=== PATIENT | female | born 1960 | race Caucasian/White ===

== ENCOUNTER → 2021-05-13 10:57 | Outpatient (CLI) | payer BC, SELFPAY ==
[2021-05-13 11:30] LABS: Prothrombin Time 27.2 seconds (10.1-12.5)
[2021-05-13 11:32] LABS: INR 2.46 (0.9-1.1)
== END ==
PROVIDERS: Visit Provider Physician Assistant
DX: R79.1 Abnormal coagulation profile (principal)
CPT/HCPCS: 85610

== ENCOUNTER → 2021-05-16 12:09 | Outpatient (CLI) | payer BC, SELFPAY ==
[2021-05-16 12:46] LABS: Prothrombin Time 30.4 seconds (10.1-12.5)
[2021-05-16 13:41] LABS: INR 2.78 (0.9-1.1)
== END ==
LOC: LAB 12:12 → LAB.DROPOF 12:13
PROVIDERS: Visit Provider Orthopaedic Surgery
DX: R79.1 Abnormal coagulation profile (principal)
CPT/HCPCS: 85610

== ENCOUNTER → 2021-05-18 11:28 | Outpatient (CLI) | payer BC, SELFPAY ==
[2021-05-18 11:58] LABS: INR 3.09 (0.9-1.1); Prothrombin Time 30.5 seconds (9.2-12.1)
== END ==
PROVIDERS: Visit Provider Orthopaedic Surgery
DX: R79.1 Abnormal coagulation profile (principal)
CPT/HCPCS: 85610

== ENCOUNTER → 2021-05-19 15:38 | Outpatient (CLI) | payer BC, SELFPAY ==
--- NOTE | 2021-05-19 | CA_ITS ---
APPROVED REPORT Left Lower Extremity Venous Study for DVT. Torpedo Specialist: CT Risk Factors Post OP Medications Coumadin Vein Imaging CFV (L): compressive, spontaneous, phasic, augmentation SFJ (L): compressive, spontaneous, phasic, augmentation FEM (L): compressive, spontaneous, phasic, augmentation POP (L): compressive, spontaneous, phasic, augmentation DFV (L): compressive, spontaneous, phasic, augmentation PTV (L): compressive, spontaneous, phasic, augmentation GSV (L): compressive, spontaneous, phasic, augmentation Peroneals (L):compressive, spontaneous, phasic, augmentation GAS (L): compressive, spontaneous, phasic, augmentation Findings LLE negative for DVT/SVT. Vessels compressible. Conclusion LLE negative for DVT/SVT. Vessels compressible. Electronically signed by : Lucho Smith MD 05/20/2021 16:00:47
== END ==
PROVIDERS: PCP Nurse Practitioner Family; Visit Provider Nurse Practitioner Family
DX: M79.662 Pain in left lower leg (principal); M79.89 Other specified soft tissue disorders
CPT/HCPCS: 93971

== ENCOUNTER → 2021-05-20 12:18 | Outpatient (CLI) | payer BC, SELFPAY ==
[2021-05-20 12:42] LABS: Prothrombin Time 28.1 seconds (10.1-12.5)
[2021-05-20 13:04] LABS: INR 2.55 (0.9-1.1)
== END ==
PROVIDERS: Visit Provider Orthopaedic Surgery
DX: Z51.81 Encounter for therapeutic drug level monitoring (principal); Z79.01 Long term (current) use of anticoagulants
CPT/HCPCS: 85610

== ENCOUNTER → 2021-05-23 15:06 | Outpatient (CLI) | payer BC, SELFPAY ==
[2021-05-23 15:24] LABS: Prothrombin Time 20.6 seconds (10.1-12.5)
[2021-05-23 15:31] LABS: INR 1.83 (0.9-1.1)
== END ==
PROVIDERS: Visit Provider Orthopaedic Surgery
DX: Z51.81 Encounter for therapeutic drug level monitoring (principal); Z79.01 Long term (current) use of anticoagulants
CPT/HCPCS: 85610

== ENCOUNTER → 2021-07-15 14:18 | Outpatient (CLI) | payer BC, SELFPAY ==
[2021-07-15 14:49] LABS: INR 2.01 (0.9-1.1); Prothrombin Time 21.6 seconds (10.1-12.5)
== END ==
PROVIDERS: Visit Provider Orthopaedic Surgery
DX: R79.1 Abnormal coagulation profile (principal)
CPT/HCPCS: 85610

== ENCOUNTER → 2021-07-20 11:02 | Outpatient (CLI) | payer BC, SELFPAY ==
[2021-07-20 11:19] LABS: INR 4.33 (0.9-1.1); Prothrombin Time 43.9 seconds (10.1-12.5)
== END ==
PROVIDERS: Visit Provider Orthopaedic Surgery
DX: R79.1 Abnormal coagulation profile (principal)
CPT/HCPCS: 85610

== ENCOUNTER → 2021-07-25 11:05 | Outpatient (CLI) | payer BC, SELFPAY ==
[2021-07-25 11:28] LABS: INR 1.52 (0.9-1.1); Prothrombin Time 16.7 seconds (10.1-12.5)
== END ==
PROVIDERS: Visit Provider Orthopaedic Surgery
DX: R79.1 Abnormal coagulation profile (principal)
CPT/HCPCS: 36415; 85610

== ENCOUNTER → 2022-12-26 14:40 | Outpatient (POV) | payer BC, SELFPAY | PROVIDERS: Visit Provider Dermatology | DX: Z00.00 Encounter for general adult medical examination without abnormal findings (principal) ==

== ENCOUNTER → 2023-02-27 14:32 | Outpatient (POV) | payer BC, SELFPAY | PROVIDERS: Visit Provider Dermatology | DX: Z00.00 Encounter for general adult medical examination without abnormal findings (principal) ==

== ENCOUNTER 2024-07-07 12:38 | Day surgery (SDC) | payer BC, SELFPAY ==
[2024-07-01 14:25] VITALS: BMI 41.6
[2024-07-07 12:58] VITALS: BP 138/71; RESP 18; TEMP 36.6; O2SAT 97
--- NOTE | 2024-07-07 13:34 | P.PNANES_ITS ---
[facility] Disclaimer: The information contained in this section may have been updated after the patient was seen, as this information can be updated by other users. Medical History History of colon polyps History of cataract History of diabetes mellitus History of hyperlipidemia History of atrial fibrillation Surgical History History of colonoscopy History of dilation and curettage History of laparoscopic cholecystectomy History of bilateral knee arthroplasty Family History Other No significant family history Social History Smoking Status: Never smoker alcohol intake: never substance use type: denies use current occupational status: retired Travel in the last 8 weeks: Inside the [facility] Anesthesia Checklist Patient Identification Patient Identification: Arm Band Structural Data Admitted From: Home Planned Operative Procedure/s: Colonoscopy Consent for Planned Operative Procedure(s) Verified: Yes Verified Documents: Surgical Consent and History and Physical NPO Status Verified Time NPO: 00:00 Additional verifications Anesthesia Reactions: No Airway Assessment Mallampati Score:: Class II C-Spine Mobility Assessed: Yes TMJ Mobility Assessed: Yes Dentition: Good Dentition Neurological Assessment Level of Consciousness: Awake, Alert and Appropriate Anesthesia Plan Anesthesia Risk discussed: Yes Anesthesia Plan: Verified ASA Class: III Anesthesia Type: MAC
--- NOTE | 2024-07-07 14:37 | P.HP_ITS ---
History of Present Illness *Admission Date: 07/07/24 *Reason for visit:: Screening *History of present illness: Mrs. Vargas is a 63-year-old female who is here for follow-up screening/surveillance colonoscopy. Her last colonoscopy was with me in [place] in 2013. At that time she had 3 polyps removed. Her maternal grandmother had colon cancer at the age of 70. [facility] Disclaimer: The information contained in this section may have been updated after the patient was seen, as this information can be updated by other users. Medical History (Updated 07/07/24 @ 14:46 by Adelso Escobedo MD) History of colon polyps History of cataract History of diabetes mellitus History of hyperlipidemia History of atrial fibrillation Surgical History History of colonoscopy History of dilation and curettage History of laparoscopic cholecystectomy History of bilateral knee arthroplasty Family History Other No significant family history Social History (Updated 07/07/24 @ 13:35 by Rohan Johnson CRNA) Smoking Status: Never smoker alcohol intake: never substance use type: denies use current occupational status: retired Travel in the last 8 weeks: Inside the [place] Review of Systems Review of Systems Review of systems (narrative): Negative *Cardiovascular Comments: Negative *Gastrointestinal Comments: Negative *Genitourinary Comments: Negative *Musculoskeletal Comments: Negative *Neurologic Comments: Negative Meds Home Medications and Allergies Home Medications ?Medication ?Instructions ?Recorded ?Confirmed ?Type atorvastatin 20 mg tablet 20 mg PO DAILY 07/01/24 07/07/24 History escitalopram oxalate 10 mg tablet 10 mg PO DAILY 07/01/24 07/07/24 History lisinopril 5 mg tablet 5 mg PO DAILY 07/01/24 07/07/24 History metformin 500 mg tablet,extended 500 mg PO DAILY 07/01/24 07/07/24 History release 24 hr metoprolol succinate 25 mg 25 mg PO ONCE PRN a fib 07/01/24 07/07/24 History tablet,extended release 24 hr propafenone 225 mg tablet 225 mg PO DAILY 07/01/24 07/07/24 History rivaroxaban 20 mg tablet (Xarelto) 20 mg PO DAILY 07/01/24 07/07/24 History New Prescriptions to Start Prescriptions: Allergies Allergy/AdvReac Type Severity Reaction Status Date / Time No Known Allergies Allergy Verified 07/07/24 12:56 Exam Data for Last 24 hours Vital signs and Labs for Last 24 Hours: Temp Resp BP Pulse Ox O2 Del Method 97.8 F 18 138/71 97 Room Air 07/07/24 12:58 07/07/24 12:58 07/07/24 12:58 07/07/24 12:58 07/07/24 12:58 *Routine HEENT Exam Head: Present normocephalic Eye: Present EOMI and PERRL ENT: Present mucous membranes moist *Routine Neck Exam Neck: Present supple *Routine Respiratory Exam Respiratory: Present CTA bilaterally *Routine Cardiovascular Exam Cardiovascular: Present RRR *Routine Abdominal Exam Abdominal: Present soft and normoactive bowel sounds; Absent tenderness *Routine Rectal Exam Rectal:: deferred *Routine Genitalia Exam Genitalia:: deferred *Routine Extremities Exam Extremities: Absent cyanosis, clubbing or edema *Routine Skin Exam Skin: Present warm; Absent rash *Routine Neurological Exam Neurological: Present alert and oriented X3 Assessment and Plan *Assessment and plan (1) Screening for colon cancer: Status: Acute Category: Medical Code(s): Z12.11 - Encounter for screening for malignant neoplasm of colon (2) History of colon polyps: Status: Acute Category: Medical Code(s): Z86.010 - Personal history of colonic polyps Plan Proceed with screening colonoscopy
[2024-07-07 14:44] VITALS: O2SAT 97
--- NOTE | 2024-07-07 14:46 | HMH.PROCNOTE ---
[facility] Procedure Note Date: 07/07/24 Time: 14:47 Procedure Note:: Colonoscopy Procedure Report: Colonoscopy with cold biopsies Endoscopist: Adelso Escobedo II, MD Referring physician: Jamey Aragon M.D. Date of Procedure: July 07, 2024 Equipment: Olympus 190 variable stiffness pediatric colonoscope Sedation: MAC sedation Indication: Mrs. Vargas is a 63-year-old female who is here for follow-up screening/surveillance colonoscopy. Her last colonoscopy in 2013 (in [place] with ca) was normal. She does state that she might of had 2 or 3 benign polyps removed. The patient does state that her maternal grandmother had colon cancer at the age of 70. The patient does have some intermittent diarrhea longstanding but attributes this to Ozempic. She reports no abdominal pain, weight loss or rectal bleeding. Procedure: Prior to the procedure, a history and physical exam was performed, and patient's medications and allergies were reviewed. The risks, benefits and alternatives of the sedation and procedure were discussed with the patient. All questions were answered and informed consent was obtained. The patient was brought to the procedure room. Patient identification and proposed procedure were verified by the physician and the nurse. The patient was placed in a left lateral decubitus position and the scope was passed under direct vision. Throughout the procedure, the patient's blood pressure, pulse, and oxygen saturations were monitored continuously. The colonoscopy was accomplished without difficulty. The patient tolerated the procedure well. Findings: On digital rectal examination there was normal rectal tone. There were no external hemorrhoids. The colonoscope was introduced through the anal canal to the rectum and advanced to the cecum. The ileocecal valve and appendiceal orifice were identified. The scope was advanced a short distance into the ileum which appeared grossly normal. The scope was then withdrawn into the colon. The cecum, ascending and transverse colon and mucosa were grossly normal. Random biopsies were obtained from the colon to rule out microscopic colitis. There were scattered diverticuli throughout the descending and sigmoid colon (LEFT colon). The rectum itself was normal. Upon retroflexion within the rectum there were grade 1-2 internal hemorrhoids. The preparation was excellent throughout with [place] Preparation Score of 9. The cecal time was 10 minutes. Impression: 1. Left-sided diverticulosis 2. Grade 1-2 internal hemorrhoids Plan: Those persons that constitute having a stronger family history of colorectal cancer are those with a first-degree relative (parent, sibling, or child) not second degree relatives such as grandmother diagnosed with colon cancer when they were younger than 50, or if more than one first-degree relative is affected. It is in these persons, that we recommend surveillance colonoscopy every 5 years. Persons that have a first-degree family member greater than 60 years of age at the time of their diagnosis are not deemed to be at greater risk because most colon cancers are sporadic (environmental and other factors) and are not hereditary. In this regard, the patient will not require surveillance colonoscopy again for 10 years. I will follow-up the biopsies to rule out microscopic colitis. I do attribute her diarrhea to the Ozempic. I do feel that she would benefit from bulking FiberCon [id number] 2 tablets p.o. every morning.
[2024-07-07 15:05] VITALS: BP 124/67; PULSE 52; RESP 16; TEMP 36.8; O2SAT 94
[2024-07-07 15:15] VITALS: BP 128/85; PULSE 50; RESP 18; O2SAT 96
[2024-07-07 15:25] VITALS: BP 130/69; PULSE 50; RESP 16; O2SAT 96
[2024-07-07 15:30] VITALS: BP 133/82; PULSE 48; RESP 16; O2SAT 98
[2024-07-08 09:33] LABS: POC Glucose,Bedside 80 (70-110)
== END 2024-07-07 15:37 | disposition home or self-care (01) ==
PROVIDERS: PCP Internal Medicine Adolescent Medicine; Visit Provider Internal Medicine Gastroenterology
PROC: (CPT 45380; principal; 2024-07-07 14:00)
DX: Z12.11 Encounter for screening for malignant neoplasm of colon (principal); Z86.010 Personal history of colon polyps; E11.9 Type 2 diabetes mellitus without complications; Z79.84 Long term (current) use of oral hypoglycemic drugs
CPT/HCPCS: 45380; 82962; 99221

== ENCOUNTER 2025-01-29 01:30 | Emergency (ER) | payer BC, SELFPAY ==
[2025-01-29 01:31] VITALS: BP 169/77; PULSE 79; RESP 16; O2SAT 98; BMI 41.5
[2025-01-29 01:33] VITALS: BP 142/88; PULSE 79; RESP 16; TEMP 36.6; O2SAT 98
--- NOTE | 2025-01-29 01:35 | CT_ITS ---
PROCEDURE INFORMATION: Exam: CT Maxillofacial Without Contrast Exam date and time: 01/29/2025 1:56 AM Age: 64 years old Clinical indication: Injury or trauma; Additional info: Fall L eyebrow hematoma TECHNIQUE: Imaging protocol: Computed tomography of the face without contrast. Radiation optimization: All CT scans at this facility use at least one of these dose optimization techniques: automated exposure control; mA and/or kV adjustment per patient size (includes targeted exams where dose is matched to clinical indication); or iterative reconstruction. COMPARISON: CT HEAD/BRAIN WO CON 01/29/2025 1:53 AM FINDINGS: Paranasal sinuses: No air-fluid levels. Orbital cavities: The orbits are normal. The globes are unremarkable. Bones: Hyperostosis frontalis interna is noted. Soft tissues: A large left forehead hematoma is present. IMPRESSION: No acute fracture
--- NOTE | 2025-01-29 01:35 | CT_ITS ---
PROCEDURE INFORMATION: Exam: CT Head Without Contrast Exam date and time: 01/29/2025 1:53 AM Age: 64 years old Clinical indication: Injury or trauma; Additional info: Fall on thinners L eyebrow hematoma TECHNIQUE: Imaging protocol: Computed tomography of the head without contrast. Radiation optimization: All CT scans at this facility use at least one of these dose optimization techniques: automated exposure control; mA and/or kV adjustment per patient size (includes targeted exams where dose is matched to clinical indication); or iterative reconstruction. COMPARISON: CT HEAD/BRAIN WO CON 01/29/2025 1:53 AM FINDINGS: Brain: No acute intracranial hemorrhage, cerebral edema, or midline shift. Cerebral ventricles: No hydrocephalus. Paranasal sinuses: There is no acute sinusitis. Mastoid air cells: Visualized mastoid air cells are well aerated. Orbital cavities: The visualized orbits appear unremarkable. Bones: Hyperostosis frontalis interna is noted. Soft tissues: A large left forehead hematoma is present. IMPRESSION: No acute intracranial abnormality.
--- NOTE | 2025-01-29 01:35 | XR_ITS ---
PROCEDURE INFORMATION: Exam: XR Left Knee Exam date and time: 01/29/2025 1:46 AM Age: 64 years old Clinical indication: Injury or trauma; Fall; Additional info: Fall L knee bruising TECHNIQUE: Imaging protocol: Radiologic exam of the left knee. Views: 3 views. Total images: 3 COMPARISON: No relevant prior studies available. FINDINGS: Bones/joints: Osteopenia. Status post total knee arthroplasty. No hardware loosening. No joint effusion. No acute fracture or joint dislocation. No concerning bone lesions. Soft tissues: Unremarkable soft tissues. IMPRESSION: 1. No acute osseous abnormality or joint effusion. 2. Satisfactory total knee arthroplasty.
--- NOTE | 2025-01-29 01:35 | CT_ITS ---
PROCEDURE INFORMATION: Exam: CT Cervical Spine Without Contrast Exam date and time: 01/29/2025 1:58 AM Age: 64 years old Clinical indication: Injury or trauma; Additional info: Fall thinners TECHNIQUE: Imaging protocol: Computed tomography of the cervical spine without contrast. Radiation optimization: All CT scans at this facility use at least one of these dose optimization techniques: automated exposure control; mA and/or kV adjustment per patient size (includes targeted exams where dose is matched to clinical indication); or iterative reconstruction. COMPARISON: CT FACIAL BONES WO CON 01/29/2025 1:56 AM FINDINGS: Bones: Bone mineralization is decreased, suggestive of osteopenia. No acute cervical spine fracture is identified. Alignment is anatomic. Severe degenerative changes of the cervical spine are present. There is at least moderate spinal canal stenosis at C4-C5 and C5-C6 due to posterior disc osteophyte complexes. Multilevel neural foraminal narrowing from uncinate spurring and facet arthropathy is noted. Large bridging osteophytes are present, consistent with diffuse idiopathic skeletal hyperostosis (DISH). Lungs: The lung apices are clear. Soft tissues: Unremarkable. IMPRESSION: 1. No acute cervical spine fracture. 2. Chronic findings as discussed above.
--- NOTE | 2025-01-29 01:35 | XR_ITS ---
PROCEDURE INFORMATION: Exam: XR Left Hand Exam date and time: 01/29/2025 1:46 AM Age: 64 years old Clinical indication: Injury or trauma; Fall; Additional info: Fall 5th metacarpal bruising TECHNIQUE: Imaging protocol: Radiologic exam of the left hand. Views: 1 or 2 views. Total images: 2 COMPARISON: No relevant prior studies available. FINDINGS: Bones/joints: Osteopenia. No acute fracture or joint dislocation. Severe degenerative change 1st carpometacarpal joint. Mild degenerative change 1st metacarpophalangeal joint. Joint spaces are otherwise appropriate for age. No concerning bone lesions. Ulnar negative variance. Mild degenerative narrowing radiocarpal joint. Soft tissues: Unremarkable soft tissues. IMPRESSION: 1. No acute osseous abnormality. 2. Chronic findings.
--- NOTE | 2025-01-29 01:36 | ED_ITS ---
Discharge Plan Disposition Patient Disposition: Home, Self-Care Condition: Good Prescriptions Prescriptions: No Action atorvastatin 20 mg tablet 20 mg PO DAILY propafenone 225 mg tablet 225 mg PO DAILY lisinopril 5 mg tablet 5 mg PO DAILY metoprolol succinate 25 mg tablet extended release 24 hr 25 mg PO ONCE PRN (Reason: a fib) metformin 500 mg tablet extended release 24 hr 500 mg PO DAILY escitalopram oxalate 10 mg tablet 10 mg PO DAILY Xarelto 20 mg tablet 20 mg PO DAILY Referrals Follow up/Referrals: Jamey Aragon MD [Primary Care Provider] - See instructions Activity Restrictions/Add. Instructions Additional Instructions/Restrictions: Were evaluated in the ER and are appropriate for discharge at this time. Continue home medications as prescribed. If you have headache, take Tylenol. Do not exceed the recommended dose on the bottle. You can apply ice wrapped in a towel to the area of bruising for up to 20 minutes at a time. Starting in 24 hours you can also very gently massage the area to help with hematoma reabsorption. Make an appointment with your primary care doctor for reevaluation in 2 to 3 days. Return to the ER with any new, worsening, or otherwise concerning symptoms as discussed. Clinical Impressions Clinical Impression: Fall, Traumatic hematoma of left eyebrow, Cervical osteophyte Print Language Print Language: Greek Discharge ED Provider: Felicia Kennedy Adult HPI General Stated complaint: fall, head injury Time Seen by Provider: 01/29/25 01:30 History of Present Illness HPI narrative: 64-year-old female on Xarelto for atrial fibrillation presents to the ER as a trauma alert after trip and fall striking her forehead. Patient reports she was in her kitchen when she tripped on the mat in front of her fridge. She struck her forehead when she fell. No loss of consciousness. Patient reports she also bumped her left hand and her left knee but those are not nearly as painful as the swelling on her left eyebrow. She is independently ambulatory into the ER. She has no complaints besides pain over the left eyebrow. No vision changes, numbness, tingling, weakness, chest pain, abdominal pain, or any other associated symptoms. Related Data Home Medications ?Medication ?Instructions ?Recorded ?Confirmed atorvastatin 20 mg tablet 20 mg PO DAILY 07/01/24 07/07/24 escitalopram oxalate 10 mg tablet 10 mg PO DAILY 07/01/24 07/07/24 lisinopril 5 mg tablet 5 mg PO DAILY 07/01/24 07/07/24 metformin 500 mg tablet,extended 500 mg PO DAILY 07/01/24 07/07/24 release 24 hr metoprolol succinate 25 mg 25 mg PO ONCE PRN a fib 07/01/24 07/07/24 tablet,extended release 24 hr propafenone 225 mg tablet 225 mg PO DAILY 07/01/24 07/07/24 rivaroxaban 20 mg tablet (Xarelto) 20 mg PO DAILY 07/01/24 07/07/24 Allergies Allergy/AdvReac Type Severity Reaction Status Date / Time No Known Allergies Allergy Verified 07/07/24 12:56 [facility] Disclaimer: The information contained in this section may have been updated after the patient was seen, as this information can be updated by other users. Medical History (Updated 01/29/25 @ 02:47 by Felicia Kennedy MD) History of colon polyps History of cataract History of diabetes mellitus History of hyperlipidemia History of atrial fibrillation Surgical History History of colonoscopy History of dilation and curettage History of laparoscopic cholecystectomy History of bilateral knee arthroplasty Family History Other No significant family history Social History (Updated 07/07/24 @ 13:35 by Rohan Johnson CRNA) Smoking Status: Never smoker alcohol intake: never substance use type: denies use current occupational status: retired Travel in the last 8 weeks: [place] the [place] ROS Obtained: Yes Systems reviewed as appropriate & no additional complaints except as documented Per HPI Physical Exam General General appearance: alert and in no apparent distress Head Head exam: normocephalic and other (Hematoma over left eyebrow/left forehead) Eye Eye exam: Present PERRL, EOMI and other (No subscleral hematoma or evidence of ocular injury); Absent conjunctival redness or jaundice ENT ENT exam: Present mucous membranes moist Neck Neck exam: Present normal inspection, full ROM and other (C-collar applied upon arrival to the ER); Absent tenderness Chest Chest inspection: Present symmetric chest wall rise; Absent tenderness Respiratory Respiratory exam: Absent respiratory distress or stridor Cardiovascular Cardiovascular exam: Present regular rate and normal rhythm Abdominal Exam Abdominal exam: Present soft; Absent distention or tenderness Extremities Exam Extremities exam: Present full ROM Neurological Exam Neurological exam: Present alert and oriented X3; Absent motor sensory deficit Psychiatric Psychiatric exam: Present normal affect and normal mood Skin Skin exam: Present warm and dry Medical Decision Making Medical Records Medical records reviewed: Yes I reviewed the patient's medical records. Screening: Per USPSTF and CDC recommendations, given the prevalence of disease in our region, it is our hospital?s policy to screen for HIV and viral Hepatitis for all patients aged 18 and over and those with ongoing risk factors. MR Comment: Colonoscopy from June 2024 reviewed by me demonstrates patient had left-sided diverticulosis as well as grade 1-2 internal hemorrhoids. Zane Inquiry Pt receiving controlled substance: No Vital Signs: 01/29/25 01:33 01/29/25 02:07 Temperature 98 F Temperature Source Oral Pulse Rate 66 Pulse Rate [Right] 79 Respiratory Rate 16 Blood Pressure 141/75 H Blood Pressure [Right Arm] 142/88 H Blood Pressure Mean [Right Arm] 106 Blood Pressure Source [Right Arm] Manual Cuff/ Auscultation Blood Pressure Position [Right Arm] Sitting 02 Sat by Pulse Oximetry 98 98 Oxygen Delivery Method Room Air Lab Data Lab Results 01/29/25 01:39: POC Glucose 141 H Orders (Tests/Meds): ED MEDICATIONS Discontinued Medications Generic Name Dose Route Start Last Admin Trade Name Freq PRN Reason Stop Dose Admin Acetaminophen 1,000 mg 01/29/25 02:32 01/29/25 02:35 Acetaminophen 500mg Tab PO 01/29/25 02:33 1,000 mg ONCE ONE Administration ORDERS Category Date Time Status CT cervical spine wo con Stat Cat Scan 01/29/25 01:[address] facial bones wo con Stat Cat Scan 01/29/25 01:[address] head/brain wo con Stat Cat Scan 01/29/25 01:35 Completed Hand XR left 2 views [XR hand LT 2V] Stat Exams 01/29/25 01:35 Completed Knee XR left 3 views [XR knee LT 3V] Stat Exams 01/29/25 01:35 Completed POCUS Point of Care (ER Only) Stat Exams 01/29/25 01:35 Completed POC Glucose,Bedside Routine Lab 01/29/25 01:39 Completed Medical Decision Narrative: In summary, 64-year-old female with atrial fibrillation on Xarelto presents to the ER with swelling over the left eyebrow after a trip and fall in her kitchen. No loss of consciousness. Patient was a trauma alert because she is a fall on blood thinners. I was present at bedside upon patient's arrival. Airway intact, bilateral breath sounds present, 2+ radial pulses, GCS 15, no neurologic deficit, only obvious external injuries are hematoma over the left eyebrow with no evidence of ocular injury, mild bruising over the left fifth metacarpal, mild bruising over the left knee. Patient is hemodynamically stable, well-appearing, independently ambulatory into the ER. After my initial assessment I immediately downgraded the trauma alert. We will continue to manage this patient at our facility. My differential diagnosis at this time includes intracranial bleed, facial fracture, C-spine injury, fracture or dislocation of the hand, knee, possible hardware injury of previously replaced left knee. Healing at most morbid conditions drove my assessment. CTs and x-ray imaging have been ordered. EFAST personally performed and interpreted as negative. See procedure note for details. X-rays of the hand and knee were personally interpreted and do not demonstrate acute osseous injury. See radiology read for final interpretation. CT imaging personally interpreted does not demonstrate acute intracranial injury or skull fracture, no facial fracture, no C-spine injury though there are degenerative changes and osteophytes. There is hematoma over the left eyebrow and frontal area which correlates clinically. See radiology reads for final interpretation. C-collar personally cleared by me. Patient has no midline pain or tenderness. No neurologic deficits. She has mild headache and received Tylenol. She is not complaining of any vision changes and has good acuity. She is appropriate for discharge at this time. She was given instructions on symptomatic monitoring and management including hematoma management. No changes in medications. Patient was given instructions on symptomatic management, follow up instructions, and return precautions for the emergency department. Patient indicated understanding and was discharged in stable condition. Critical Care Critical Care Time Critical Care Time: No
--- OUTSIDE RECORDS SUMMARY | 2025-01-29 01:40 | XMS_ITS | Clinical Summary ---
Author Organization [facility] , [facility] Address [address] [place] [address] Phone Care Team Providers Care Lane Attendant Name Role Phone NELLY DINH, SMITA Unavailable [phone] Elle DINH, Vince Pate Unavailable [phone] Reason for Referral Date Encounter Description Provider Reason for Referral 09/15/21 Post Op Dat Tilley PA-C Refer ral To Physician - see pcp for bp Reason for Visit and Chief Complaint The Chief Complaint is: hallie knee pain Problems Includes: Problems addressed during this encounter and other active Problems All Visits Onset Date Resolved Date Provider Condition S tatus Joint Pain in Both Knees 02/11/2019 Vince Almeida MD Active Last Documented On 9 3:09PM ; [facility], [facility] Plan of Treatment Patient overall doing very well. She is to continue physical therapy home exercise program. May gradually progress her activity as tolerated. Follow-up in the office in one year with repeat x-rays Patient appears to have a bit of a rash over the anterior aspect of her left knee directly over the incision. Left knee incision is well-healed recommend topical cortisone cream she is seeing dermatology next week - Last Documented On 09/15/2021 1:27PM ; [facility], [facility] Instructions to patient Instructions for patient to see pcp for low bp and wt Last Documented On 1 1:06PM ; [facility], [facility] Lose weight Last Documented On 1 1:06PM ; [facility], [facility] Assessments Includes: Assessments from this encounter Findings 8 weeks s/p Right TKA - Last Documented On 09/15/2021 1:27PM ; [facility], [facility] Instructions Includes: Instructions from this encounter Instructions to patient Instructions for patient to see pcp for low bp and wt Last Documented On 1 1:06PM ; [facility], [facility] Lose weight Last Documented On 1 1:06PM ; [facility], [facility] Medical Equipment - Implanted Devices Includes: Current Devices No Medical Equipment Recorded Medications Includes: Medications discussed during this encounter and other current Medications Current Medications (continue as prescribed) metFORMIN HCl ER 500 MG Oral Tablet Extended Release 24 Hour 06/22/2022 Provider: Catrachita parekh APRN Diagnosis: Last Documented On 2 2:28PM By Estrella Phillips ; [facility], [facility] Propafenone HCl 225 MG Oral Tablet 06/22/2022 Provid er: Diagnosis: Last Documented On 2 2:28PM By Estrella Phillips ; [facility], [facility] Past Medications on file Atorvastatin Calcium 20 MG O ral Tablet 09/18/2022 - 12/17/2022 Provider: SMITA Fraga Diagnosis: Last Documented On 2 1:32PM By Estrella Phillips ; [facility], [facility] Lisinopril 5 MG Oral Tablet 09/18/2022 - 12/17/2022 Pr ovider: SMITA VILLEGAS MD Diagnosis: Last Documented On 2 1:32PM By Estrella Phillips ; [facility], [facility] Escitalopram Oxalate 10 MG Oral Tablet 09/18/2022 - Provider: Diagnosis: Last Documented On 2 1:34PM By Estrella Phillips ; [facility], [facility] Xarelto 20 MG Oral Tablet 09/18/2022 - 12/17/2022 Prov ider: Diagnosis: Last Documented On 2 1:34PM By Estrella Phillips ; [facility], [facility] Propafenone HCl 150 MG Oral Tablet 09/18/2022 - 12/17/2022 Provider: LESTER STINSON MD Diagnosis: Last Documented On 2 1:34PM By Estrella Phillips ; [facility], [facility] Acetaminophen 500 MG Oral Tablet 07/11/2021 - 08/10/2021 Provider: Vince Almeida MD Diagnosis: 2 three times a day DNF UNTIL SX 07/13/21 Last Documented On 1 12:17PM By Magdiel Almeida ; [facility], [facility] Cefadroxil 500 MG Oral Capsule 07/11/2021 - 07/14/2021 Provider: Vince beltran MD Diagnosis: twice a day DNF UNTIL SX 07/13/21 Last Documented On 1 12:18PM By Magdiel Almeida ; [facility] Ultram 50 MG Oral Tablet 07/11/2021 - 07/16/2021 Provider: Vince beltran MD Diagnosis: 1-2 po q6h prn pain DNF UNTIL SX 07/13/21 Last Documented On 12:23PM By Magdiel Almeida ; [facility], [facility] oxyCODONE HCl 5 MG Oral Tablet 07/11/2021 - 07/16/2021 Provider: Vince beltran MD Diagnosis: 1-2 po q 4-6h DNF UNTIL SX 07/13/21 Last Documented On 1 12:23PM By Magdiel Almeida ; [facility], [facility] Ondansetron HCl 4 MG Oral Tablet 07/11/2021 - 07/16/2021 Provider: Vince Almeida MD Diagnosis: 9oad2-8d DNF UNTIL SX 07/13/21 Last Documented On 1 12:20PM By Magdiel Almeida ; [facility], [facility] Neurontin 300 MG Oral Capsule 07/11/2021 - 10/09/2021 Provider: Vince beltran MD Diagnosis: 1 every bedtime DNF UNTIL SX 07/13/21 Last Documented On 1 12:23PM By Magdiel Almeida ; [facility] Meloxicam 15 MG Oral Tablet 07/11/2021 - 07/25/2021 Provider: Vince beltran MD Diagnosis: once a day DNF UNTIL SX 07/13/21 Last Documented On 1 12:19PM By Magdiel Almeida ; [facility] Colace 100 MG Oral Capsule 07/11/2021 - 10/09/2021 Provider: Vince beltran MD Diagnosis: 1-2 tabs daily DNF UNTIL SX 07/13/21 Last Documented On 12:18PM By Magdiel Almeida ; [facility] Ultram 50 MG Oral Tablet 05/10/2021 - 05/15/2021 Provider: Vince beltran MD Diagnosis: 1-2 po q6h prn pain DNF UNTIL SX 05/11/21 Last Documented On 9:08AM By Magdiel Almeida ; [facility] oxyCODONE HCl 5 MG Oral Tablet 05/10/2021 - 05/15/2021 Provider: Vince beltran MD Diagnosis: 1-2 po q 4-6h DNF UNTIL SX 05/11/21 Last Documented On 1 9:08AM By Magdiel Almeida ; [facility] Ondansetron HCl 4 MG Oral Tablet 05/10/2021 - 05/15/2021 Provider: Vince Almeida MD Diagnosis: 1soc5-4e DNF UNTIL SX 05/11/21 Last Documented On 1 9:02AM By Magdiel Almeida ; [facility] Meloxicam 15 MG Oral Tablet 05/10/2021 - 05/24/2021 Provider: Vince beltran MD Diagnosis: once a day DNF UNTIL SX 05/11/21 Last Documented On 1 9:01AM By Magdiel Almeida ; [facility] Neurontin 300 MG Oral Capsule 05/10/2021 - 08/08/2021 Provider: Vince beltran MD Diagnosis: 1 every bedtime DNF UNTIL SX 05/11/21 Last Documented On 9:08AM By Magdiel Almeida ; [facility] Colace 100 MG Oral Capsule 05/10/2021 - 08/08/2021 Provider: Vince beltran MD Diagnosis: 1-2 tabs daily DNF UNTIL SX 05/11/21 Last Documented On 1 9:00AM By Magdiel Almeida ; [facility] Cefadroxil 500 MG Oral Capsule 05/10/2021 - 05/13/2021 Provider: Vince beltran MD Diagnosis: twice a day DNF UNTIL SX 05/11/21 Last Documented On 1 8:59AM By Magdiel Almeida ; [facility] Acetaminophen 500 MG Oral Tablet 05/10/2021 - 06/09/2021 Provider: Vince Almeida MD Diagnosis: 2 three times a day DNF UNTIL SX 05/11/21 Last Documented On 1 8:59AM By Magdiel Almeida ; [facility] Medications Administered Includes: Administered Medications from this encounter No Administered Medications Recorded Vital Signs Includes: Vital Signs from this encounter Vital Name 09/15/2021 01:06P Blood Pressure Sitting (mmHg) 168/76 Pulse Rate-Sitting (bpm) 65 Height (in) 66 Weight (lb) 315 Body Mass Index (kg/m2) 50.8 Body Surface Area (m2) 2.4 Note: ml Last Documented: On 09/15/2021 1:10PM ; [facility] Results Includes: Results discussed during this encounter No Results Recorded For Specified Dates History of Present Illness Includes: History of Present Illness from this encounter VIOLETTA Vargas is a 60 year old female. - Allergy list reviewed - Problem list reviewed - Medication reconciliation performed - Medication list reviewed Social History Description Last Updated Exercising regularly 09/18/2022 Last Documented On 1 1:06PM ; [facility] Non-smoker 05/26/2021 Last Documented On 1 1:06PM ; [facility] Not a current smoker. 05/26/2021 Last Documented On 1 1:06PM ; [facility] Caffeine use 02/11/2019 Last Documented On 1 1:06PM ; [facility] No recent change in diet 02/11/2019 Last Documented On 1 1:06PM ; [facility] Not a current smoker 02/11/2019 Last Documented On 1 1:06PM ; [facility], [facility] Not using alcohol 02/11/2019 Last Documented On 1 1:06PM ; [facility], [facility] Not using drugs 02/11/2019 Last Documented On 1 1:06PM ; [facility] No tobacco use 02/11/2019 Last Documented On 1 1:06PM ; [facility], [facility] Smoking status : Never smoker 02/11/2019 Last Documented On 1 1:06PM ; [facility], [facility] Procedures and Surgical History Includes: Procedures from this encounter Procedures Code Diagnosis Performing Provider Service L ocation Service Date use of tobacco assessment performed 1000F Last Documented On 1 1:06PM ; [facility], [facility] referral to physician see pcp for bp Last Documented On 1 1:11PM ; [facility], [facility] Clinical summary provided to patient Last Documented On 1 1:06PM ; [facility] an X-ray was performed 79009 Last Documented On 1 1:06PM ; [facility], [facility] History of Blood Tests Last Documented On 1 1:06PM ; [facility] Medical History Includes: Medical History addressed during this encounter Description Last Updated Recent immunization for flu 2019 022 Last Documented On 1 1:06PM ; [facility] Arthritis 05/26/2021 Last Documented On 1 1:06PM ; [facility], [facility] Heartburn / Acid Reflux 05/26/2021 Last Documented On 1 1:06PM ; [facility], [facility] History of Gallbladder 05/26/2021 Last Documented On 1 1:06PM ; [facility] Hypertension 05/26/2021 Last Documented On 1 1:06PM ; [facility], [facility] Irregular Heartbeat 05/26/2021 Last Documented On 1 1:06PM ; [facility], [facility] No recent immunization for pneumococcal pneumonia 05/26/2021 Last Documented On 1 1:06PM ; [facility] Past Surgical History: cataracts 021 Last Documented On 1 1:06PM ; [facility] Sleep Apnea 05/26/2021 Last Documented On 1 1:06PM ; [facility] Total knee arthroplasty 05/26/2021 Last Documented On 1 1:06PM ; [facility] Use of CPAP 05/26/2021 Last Documented On 1 1:06PM ; [facility] heartburn/acid reflux 02/11/2019 Last Documented On 1 1:06PM ; [facility] A previous fracture 02/11/2019 Last Documented On 1 1:06PM ; [facility] Arthritic joint problems 02/11/2019 Last Documented On 1 1:06PM ; [facility] Gallbladder disease 02/11/2019 Last Documented On 1 1:06PM ; [facility] History of diabetes mellitus 02/11/2019 Last Documented On 1 1:06PM ; [facility] Intermittent hypertension 02/11/2019 Last Documented On 1 1:06PM ; [facility] Family History Includes: Family History addressed during this encounter Description Last Updated Diabetes mellitus 05/26/2021 Last Documented On 1 1:06PM ; [facility] Stroke / Seizures 05/26/2021 Last Documented On 1 1:06PM ; [facility] Family history of cancer 02/11/2019 Last Documented On 1 1:06PM ; [facility] Family history of diabetes mellitus 01/15 Last Documented On 1 1:06PM ; [facility] Family history of heart disease 02/12/20 19 Last Documented On 1 1:06PM ; [facility] Family history of hypertension 9 Last Documented On 1 1:06PM ; [facility] Family history of thromboembolic disease 02/11/2019 Last Documented On 1 1:06PM ; [facility] Review of Systems Includes: Review of Systems from this encounter Systemic: Not feeling tired, no recent weight loss, and no recent weight gain. No edema. Head: No headache and no sinus pain. Eyes: No vision problems. Vision problems. No glaucomatous visual field defect. No Cataracts, no Glasses/Contacts, and no Glaucoma. Otolaryngeal: No hearing loss and no tinnitus. No nasal symptoms. Cardiovascular: No chest pain or discomfort. Palpitations. No Hypertension. High Cholesterol. Pulmonary: No daytime asthma symptoms, no cough, and no chronic cough. No wheezing. Gastrointestinal: Heartburn. No abdominal pain. No Indigestion. Acid Reflux. No Peptic Ulcer, no GI Stomach Bleed, and no Ulcers. Endocrine: No hot flashes. Muscle weakness and Diabetes. No Hypothyroid and no Hyperthyroid. Hematologic: No easy bleeding, no tendency for easy bruising, and no Anemia. Musculoskeletal: Arthritis and lower back pain. No soft tissue swelling. Pain localized to one or more joints. Neurological: No dizziness, no convulsions, and no numbness. Psychological: Anxiety. No emotional lability, no depression, and no insomnia. Not crying for no reason. Skin: No dry skin. No Ulcers. Scars. No rash and no ulcers. Allergic and Immunologic: Complaint of seasonal allergic reaction. Mental Status Includes: Mental Status from this encounter Description Anxiety Functional Status Includes: Functional Status from this encounter No Functional Status Recorded Physical Exam Includes: Physical Exam from this encounter Allergies Includes: Active Allergies Substance Type Reaction Onset Date Resolved Date Statu s predniSONE Allergy lethargy 12/25/2019 Active Last Documented On 2 1:32PM ; [facility] NSAIDs Allergy 02/11/2019 Resolved Last Documented On 0 1:35PM ; [facility] Note: Per patient Encounters Encounter Provider Location Date Check-In Time Check-Out Time Diagnosis Post Op a[facility]t [facility] 1 1:04PM 1:25PM Insurance Includes: Active Insurance Policies Plan Name Member ID Group # Subscriber Relationship Effect ciara Dates 1 - [facility] [id number] Cindy Vargas Self 10/15/2021 - Unknown Clinical Notes Includes: Clinical Notes from this encounter No Clinical Notes Recorded
--- OUTSIDE RECORDS SUMMARY | 2025-01-29 01:40 | XMS_ITS | Clinical Summary ---
Author Organization [facility] , [facility] Address [address] [place] [address] Phone Care Team Providers Care [facility]na Name Role Phone NELLY DINH, SMITA Unavailable [phone] Elle DINH, Vince Pate Unavailable [phone] Reason for Referral Date Encounter Description Provider Reason for Referral 09/18/22 Follow Up Dat Tilley PA-C Refer ral To Physician - see pcp for bp Reason for Visit and Chief Complaint The Chief Complaint is: hallie knee pain Problems Includes: Problems addressed during this encounter and other active Problems All Visits Onset Date Resolved Date Provider Condition S tatus Joint Pain in Both Knees 02/11/2019 Vince Almeida MD Active Last Documented On 9 3:09PM ; [facility], [facility] Plan of Treatment Patient is 1 year postop right TKA and 1.5 year postop left TKA. Overall patient is doing well and reports no complaints. Continue with ad jazzy. activity and follow- up in the office in 5 years or when necessary - Last Documented On 09/18/2022 3:34PM ; [facility], [facility] Instructions to patient Instructions for patient to see pcp for low bp and wt Last Documented On 2 1:31PM ; [facility], [facility] Lose weight Last Documented On 2 1:31PM ; [facility], [facility] Assessments Includes: Assessments from this encounter Findings 12 months postop right TKA - Last Documented On 09/18/2022 3:34PM ; [facility], [facility] 18 months postop Left TKA - Last Documented On 09/18/2022 3:34PM ; [facility] Instructions Includes: Instructions from this encounter Instructions to patient Instructions for patient to see pcp for low bp and wt Last Documented On 2 1:31PM ; [facility] Lose weight Last Documented On 2 1:31PM ; [facility] Medical Equipment - Implanted Devices Includes: Current Devices No Medical Equipment Recorded Medications Includes: Medications discussed during this encounter and other current Medications Discontinued / Stopped on this date on 09/18/2022 Atenolol-Chlorthalidone 50-25 MG Oral Tablet Provider: Diagnosis: Last Documented On 2 2:27PM By Estrella Phillips ; [facility] Aspirin 325 MG Oral Tablet Provider: Diagnosis: Last Documented On 2 2:27PM By Estrella Phillips ; [facility] metFORMIN HCl 500 MG Oral Tablet Provider : Diagnosis: Last Documented On 2 2:27PM By Estrella Phillips ; [facility] Vitamin C 1000 MG Oral Tablet Provide r: Diagnosis: Last Documented On 2 2:28PM By Estrella Phillips ; [facility] Vitamin D3 250 MCG (41619 UT) Oral Capsule Provider: Diagnosis: Last Documented On 2 2:27PM By Estrella Fair [facility] Loratadine 10 MG Oral Capsule Provider: Diagnosis: Last Documented On 2 2:27PM By Estrella Fair [facility] Potassium 75 MG Oral Tablet Provider: Diagnosis: Last Documented On 2 2:28PM By Estrella Fair [facility] Zegerid 20-1100 MG Oral Capsule Provider: Diagnosis: Last Documented On 2 2:27PM By Estrella Phillips ; [facility] Voltaren 1% Transdermal Gel Provider: Diagnosis: Last Documented On 2 1:32PM By Estrella Phillips ; [facility] Vitamin E 400UNIT Oral Capsule Provid er: Diagnosis: Last Documented On 2 1:33PM By Estrella Phillips ; [facility] Current Medications (continue as prescribed) metFORMIN HCl ER 500 MG Oral Tablet Extended Release 24 Hour 06/22/2022 Provider: Catrachita parekh APRN Diagnosis: Last Documented On 2 2:28PM By Estrella Phillips ; [facility] Propafenone HCl 225 MG Oral Tablet 06/22/2022 Provid er: Diagnosis: Last Documented On 2 2:28PM By Estrella Phillips ; [facility] Past Medications on file Atorvastatin Calcium 20 MG O ral Tablet 09/18/2022 - 12/17/2022 Provider: SMITA Fraga Diagnosis: Last Documented On 2 1:32PM By Estrella Phillips ; [facility] Lisinopril 5 MG Oral Tablet 09/18/2022 - 12/17/2022 Pr ovider: SMITA VILLEGAS MD Diagnosis: Last Documented On 2 1:32PM By Estrella Phillips ; [facility] Escitalopram Oxalate 10 MG Oral Tablet 09/18/2022 - Provider: Diagnosis: Last Documented On 2 1:34PM By Estrella Phillips ; [facility] Xarelto 20 MG Oral Tablet 09/18/2022 - 12/17/2022 Prov ider: Diagnosis: Last Documented On 2 1:34PM By Estrella Phillips ; [facility] Propafenone HCl 150 MG Oral Tablet 09/18/2022 - 12/17/2022 Provider: LESTER STINSON MD Diagnosis: Last Documented On 2 1:34PM By Estrella Phillips ; [facility] Acetaminophen 500 MG Oral Tablet 07/11/2021 - 08/10/2021 Provider: Vince Almeida MD Diagnosis: 2 three times a day DNF UNTIL SX 07/13/21 Last Documented On 12:17PM By Magdiel Almeida ; [facility] Cefadroxil 500 MG Oral Capsule 07/11/2021 - 07/14/2021 Provider: Vince beltran MD Diagnosis: twice a day DNF UNTIL SX 07/13/21 Last Documented On 09/27/202 1 12:18PM By Magdiel Almeida ; [facility] Ultram 50 MG Oral Tablet 07/11/2021 - 07/16/2021 Provider: Vince beltran MD Diagnosis: 1-2 po q6h prn pain DNF UNTIL SX 07/13/21 Last Documented On 1 12:23PM By Magdiel Almeida ; [facility] oxyCODONE HCl 5 MG Oral Tablet 07/11/2021 - 07/16/2021 Provider: Vince beltran MD Diagnosis: 1-2 po q 4-6h DNF UNTIL SX 07/13/21 Last Documented On 1 12:23PM By Magdiel Almeida ; [facility] Ondansetron HCl 4 MG Oral Tablet 07/11/2021 - 07/16/2021 Provider: Vince Almeida MD Diagnosis: 2pla9-4w DNF UNTIL SX 07/13/21 Last Documented On 1 12:20PM By Magdiel Almeida ; [facility] Neurontin 300 MG Oral Capsule 07/11/2021 - 10/09/2021 Provider: Vince beltran MD Diagnosis: 1 every bedtime DNF UNTIL SX 07/13/21 Last Documented On 1 12:23PM By Magdiel Almeida ; [facility] Meloxicam 15 MG Oral Tablet 07/11/2021 - 07/25/2021 Provider: Vince beltran MD Diagnosis: once a day DNF UNTIL SX 07/13/21 Last Documented On 1 12:19PM By Magdiel Almeida ; [facility] Colace 100 MG Oral Capsule 07/11/2021 - 10/09/2021 Provider: Vince beltran MD Diagnosis: 1-2 tabs daily DNF UNTIL SX 07/13/21 Last Documented On 1 12:18PM By Magdiel Almeida ; [facility] Ultram 50 MG Oral Tablet 05/10/2021 - 05/15/2021 Provider: Vince beltran MD Diagnosis: 1-2 po q6h prn pain DNF UNTIL SX 05/11/21 Last Documented On 1 9:08AM By Magdiel Almeida ; [facility] oxyCODONE HCl 5 MG Oral Tablet 05/10/2021 - 05/15/2021 Provider: Vince beltran MD Diagnosis: 1-2 po q 4-6h DNF UNTIL SX 05/11/21 Last Documented On 1 9:08AM By Magdiel Almeida ; [facility] Ondansetron HCl 4 MG Oral Tablet 05/10/2021 - 05/15/2021 Provider: Vince Almeida MD Diagnosis: 4lii2-2i DNF UNTIL SX 05/11/21 Last Documented On 1 9:02AM By Magdiel Almeida ; [facility] Meloxicam 15 MG Oral Tablet 05/10/2021 - 05/24/2021 Provider: Vince beltran MD Diagnosis: once a day DNF UNTIL SX 05/11/21 Last Documented On 1 9:01AM By Magdiel Almeida ; [facility] Neurontin 300 MG Oral Capsule 05/10/2021 - 08/08/2021 Provider: Vince beltran MD Diagnosis: 1 every bedtime DNF UNTIL SX 05/11/21 Last Documented On 1 9:08AM By Magdiel Almeida ; [facility] Colace 100 MG Oral Capsule 05/10/2021 - 08/08/2021 Provider: Vince beltran MD Diagnosis: 1-2 tabs daily DNF UNTIL SX 05/11/21 Last Documented On 1 9:00AM By Magdiel Almeida ; [facility] Cefadroxil 500 MG Oral Capsule 05/10/2021 - 05/13/2021 Provider: Vince beltran MD Diagnosis: twice a day DNF UNTIL SX 05/11/21 Last Documented On 1 8:59AM By Magdiel Almeida ; [facility] Acetaminophen 500 MG Oral Tablet 05/10/2021 - 06/09/2021 Provider: Vince Almeida MD Diagnosis: 2 three times a day DNF UNTIL SX 05/11/21 Last Documented On 8:59AM By Magdiel Almeida ; [facility] Medications Administered Includes: Administered Medications from this encounter No Administered Medications Recorded Vital Signs Includes: Vital Signs from this encounter Vital Name 09/18/2022 01:57P Blood Pressure Sitting (mmHg) 137/71 Pulse Rate-Sitting (bpm) 66 Height (in) 66 Weight (lb) 303 Body Mass Index (kg/m2) 48.9 Body Surface Area (m2) 2.4 Note: ck Last Documented: On 09/18/2022 1:58PM ; [facility] Results Includes: Results discussed during this encounter No Results Recorded For Specified Dates History of Present Illness Includes: History of Present Illness from this encounter VIOLETTA Vargas is a 61 year old female. - Allergy list reviewed - Problem list reviewed - Medication list reviewed Social History Description Last Updated Not exercising regularly 09/18/2022 Last Documented On 2 3:34PM ; [facility] Tobacco non-user 09/18/2022 Last Documented On 2 3:34PM ; [facility] No recent change in diet 09/18/2022 Last Documented On 2 3:34PM ; [facility] Not a current smoker. 09/18/2022 Last Documented On 2 3:34PM ; [facility] Non-smoker 05/26/2021 Last Documented On 2 1:31PM ; [facility] Not a current smoker. 05/26/2021 Last Documented On 2 1:31PM ; [facility] Caffeine use 02/11/2019 Last Documented On 2 1:31PM ; [facility] No recent change in diet 02/11/2019 Last Documented On 2 1:31PM ; [facility] Not a current smoker 02/11/2019 Last Documented On 2 1:31PM ; [facility], [facility] Not using alcohol 02/11/2019 Last Documented On 2 1:31PM ; [facility], [facility] Not using drugs 02/11/2019 Last Documented On 2 1:31PM ; [facility] No tobacco use 02/11/2019 Last Documented On 2 1:31PM ; [facility] Smoking status : Never smoker 02/11/2019 Last Documented On 2 1:31PM ; [facility] Procedures and Surgical History Includes: Procedures from this encounter Procedures Code Diagnosis Performing Provider Service L ocation Service Date use of tobacco assessment performed 1000F Last Documented On 2 1:31PM ; [facility], [facility] patient screened for future fall risk: documentation of any fall with injury in past year 1100F Last Documented On 2 1:58PM ; [facility], [facility] referral to physician see pcp for bp Last Documented On 2 1:31PM ; [facility], [facility] Clinical summary provided to patient Last Documented On 2 1:31PM ; [facility] Last Documented On 2 1:31PM ; [facility] History of Blood Tests Last Documented On 2 1:31PM ; [facility], [facility] Surgical History Last Updated History of History of Gallbladder 2021 Last Documented On 2 3:34PM ; [facility], [facility] Medical History Includes: Medical History addressed during this encounter Description Last Updated History of arthritis 09/18/2022 Last Documented On 2 3:34PM ; [facility], [facility] History of Heartburn / Acid Reflux 09/18 Last Documented On 2 3:34PM ; [facility], [facility] History of Hypertension 09/18/2022 Last Documented On 2 3:34PM ; [facility], [facility] History of Irregular Heartbeat 2 Last Documented On 2 3:34PM ; [facility], [facility] Recent immunization for flu 07/25/2022 1 11/19/2021 Last Documented On 2 3:34PM ; [facility] Arthritis 05/26/2021 Last Documented On 2 1:31PM ; [facility] Heartburn / Acid Reflux 05/26/2021 Last Documented On 2 1:31PM ; [facility] History of Gallbladder 05/26/2021 Last Documented On 2 1:31PM ; [facility] Hypertension 05/26/2021 Last Documented On 2 1:31PM ; [facility] Irregular Heartbeat 05/26/2021 Last Documented On 2 1:31PM ; [facility] No recent immunization for pneumococcal pneumonia 05/26/2021 Last Documented On 2 1:31PM ; [facility] Past Surgical History: cataracts 021 Last Documented On 2 1:31PM ; [facility] Sleep Apnea 05/26/2021 Last Documented On 2 1:31PM ; [facility] Total knee arthroplasty 05/26/2021 Last Documented On 2 1:31PM ; [facility] Use of CPAP 05/26/2021 Last Documented On 2 1:31PM ; [facility] heartburn/acid reflux 02/11/2019 Last Documented On 2 1:31PM ; [facility] A previous fracture 02/11/2019 Last Documented On 2 1:31PM ; [facility] Arthritic joint problems 02/11/2019 Last Documented On 2 1:31PM ; [facility] Gallbladder disease 02/11/2019 Last Documented On 2 1:31PM ; [facility] History of diabetes mellitus 02/11/2019 Last Documented On 2 1:31PM ; [facility] Intermittent hypertension 02/11/2019 Last Documented On 2 1:31PM ; [facility] Family History Includes: Family History addressed during this encounter Description Last Updated Diabetes mellitus 05/26/2021 Last Documented On 2 1:31PM ; [facility], [facility] Stroke / Seizures 05/26/2021 Last Documented On 2 1:31PM ; [facility], [facility] Family history of cancer 02/11/2019 Last Documented On 2 1:31PM ; [facility], [facility] Family history of diabetes mellitus 01/15 Last Documented On 2 1:31PM ; [facility], [facility] Family history of heart disease 02/12/20 19 Last Documented On 2 1:31PM ; [facility], [facility] Family history of hypertension 9 Last Documented On 2 1:31PM ; [facility], [facility] Family history of thromboembolic disease 02/11/2019 Last Documented On 2 1:31PM ; [facility], [facility] Review of Systems Includes: Review of [...] Exam Includes: Physical Exam from this encounter Immunizations Includes: Immunizations addressed during this encounter Vaccine Dose # Date Site Reaction(s) Status Source Influenza 1 07/25/2022 Complete (Reported) Patient Last Documented On 2 1:57PM ; [facility], [facility] PCV (Pneumovax 23) 1 09/18/2022 Complete (Refused - Patient objection) [facility] Last Documented On 2 1:57PM ; [facility] Allergies Includes: Active Allergies Substance Type Reaction Onset Date Resolved Date Statu s predniSONE Allergy lethargy 12/25/2019 Active Last Documented On 2 1:32PM ; [facility] NSAIDs Allergy 02/11/2019 Resolved Last Documented On 0 1:35PM ; [facility], [facility] Note: Per patient Encounters Encounter Provider Location Date Check-In Time Check-Out Time Diagnosis Follow Up Dat Tilley PA-C [facility] 2 1:34PM 2:14PM Insurance Includes: Active Insurance Policies Plan Name Member ID Group # Subscriber Relationship Effect ciara Dates 1 - [employer] [place] [id number] Cindy [place] Self 10/15/2021 - Unknown Clinical Notes Includes: Clinical Notes from this encounter No Clinical Notes Recorded
--- OUTSIDE RECORDS SUMMARY | 2025-01-29 01:40 | XMS_ITS ---
Author Organization Unknown Medications Medication Instructions Effective Dates (start - stop) Status 24 HR metformin hydrochlorid e 500 MG Extended Release Oral Tablet [id number]:00:00.00 0+00:0 0 - Completed - 9332-96-90D29:00 :00.000+00:0 0 - Completed propafenone hydrochloride 22 5 MG Oral Tablet 3315-32-23O25:00:00.000+00:0 0 - Completed 24 HR metformin hydrochlorid e 500 MG Extended Release Oral Tablet 9533-85-51J35:00:00.00 0+00:0 0 - Completed propafenone hydrochloride 22 5 MG Oral Tablet [id number]:00:00.000+00:0 0 - Completed latanoprost 0.05 MG/ML Ophth almic Solution 2650-37-03Q54:00:00.000+00:0 0 - Completed - 6890-93-93D05:00 :00.000+00:0 0 - Completed latanoprost 0.05 MG/ML Ophth almic Solution 3912-94-09H28:00:00.000+00:0 0 - Completed latanoprost 0.05 MG/ML Ophth almic Solution [id number]:00:00.000+00:0 0 - Completed 24 HR metformin hydrochlorid e 500 MG Extended Release Oral Tablet [id number]:00:00.00 0+00:0 0 - Completed hydrocortisone 0.025 MG/MG T opical Ointment [id number]:00:00.000+00:0 0 - Completed propafenone hydrochloride 22 5 MG Oral Tablet 1891-09-95C25:00:00.000+00:0 0 - Completed 24 HR metformin hydrochlorid e 500 MG Extended Release Oral Tablet [id number]:00:00.00 0+00:0 0 - Completed - 9352-87-27M63:00 :00.000+00:0 0 - Completed atorvastatin 20 MG Oral Tablet 292-29-38K19:00:00.000+00:0 0 - Completed lisinopril 5 MG Oral Tablet 2021:00:00.000+00:0 0 - Completed atorvastatin 20 MG Oral Tablet 2 086-19-87T24:00:00.000+00:0 0 - Completed rivaroxaban 20 MG Oral Table t [Xarelto] [id number]:00:00.000+00:0 0 - Completed - 5133-98-62C42:00 :00.000+00:0 0 - Completed rivaroxaban 20 MG Oral Table t [Xarelto] [id number]:00:00.000+00:0 0 - Completed escitalopram 10 MG Oral Tablet 2 035-12-08L32:00:00.000+00:0 0 - Completed lisinopril 5 MG Oral Tablet 2022:00:00.000+00:0 0 - Completed escitalopram 10 MG Oral Tablet 2 604-79-26J19:00:00.000+00:0 0 - Completed escitalopram 10 MG Oral Tablet 2 611-52-28A58:00:00.000+00:0 0 - Completed - 1024-31-34P20:00 :00.000+00:0 0 - Completed rivaroxaban 20 MG Oral Table t [Xarelto] [id number]:00:00.000+00:0 0 - Completed lisinopril 5 MG Oral Tablet 2022:00:00.000+00:0 0 - Completed - 6462-39-77G17:00 :00.000+00:0 0 - Completed escitalopram 10 MG Oral Tablet 170-41-70O31:00:00.000+00:0 0 - Completed 72 HR scopolamine 0.0139 MG/ HR Transdermal System 1669-59-87O95:00:00.000+00:0 0 - Completed rivaroxaban 20 MG Oral Table t [Xarelto] [id number]:00:00.000+00:0 0 - Completed propafenone hydrochloride 22 5 MG Oral Tablet 0976-80-34O47:00:00.000+00:0 0 - Completed atorvastatin 20 MG Oral Tablet 2 206-43-04P78:00:00.000+00:0 0 - Completed lisinopril 5 MG Oral Tablet 2021:00:00.000+00:0 0 - Completed lisinopril 5 MG Oral Tablet 2022:00:00.000+00:0 0 - Completed atorvastatin 20 MG Oral Tablet 2 358-00-70T89:00:00.000+00:0 0 - Completed atorvastatin 20 MG Oral Tablet 2 340-87-25F81:00:00.000+00:0 0 - Completed 24 HR metoprolol succinate 2 5 MG Extended Release Oral Tablet 9154-28-06V71:00:00.000+0 0:0 0 - Completed 24 HR metoprolol succinate 2 5 MG Extended Release Oral Tablet 9986-99-65H77:00:00.000+0 0:0 0 - Completed escitalopram 10 MG Oral Tablet [id number]:00:00.000+00:0 0 - Completed Patient Care team information Name Category Status Period Participants - - Proposed period not known -
--- OUTSIDE RECORDS SUMMARY | 2025-01-29 01:40 | XMS_ITS | Clinical Summary ---
Author Organization [facility] , [facility] Address [address] [place] [address] Phone Care Team Providers Care Blind Eyeletter Name Role Phone NELLY DINH, SMITA Unavailable [phone] Elle DINH, Vince Pate Unavailable [phone] Reason for Visit and Chief Complaint The Chief Complaint is: hallie knee pain Problems Includes: Problems addressed during this encounter and other active Problems All Visits Onset Date Resolved Date Provider Condition S tatus Joint Pain in Both Knees 02/11/2019 Vince Almeida MD Active Last Documented On 9 3:09PM ; [facility], [facility] Plan of Treatment Patient overall is doing fairly well. Encouraged patient to continue to adhere to her postoperative protocols. Recommend the patient continue to work on extension- based therapy. Follow-up in the office in 4-6 weeks - Last Documented On 08/03/2021 3:46PM ; [facility], [facility] Instructions to patient Instructions for patient to see pcp for low bp and wt Last Documented On 1 2:39PM ; [facility], [facility] Lose weight Last Documented On 1 2:39PM ; [facility], [facility] Assessments Includes: Assessments from this encounter Findings 3 weeks postop right TKA - Last Documented On 08/03/2021 3:46PM ; [facility], [facility] Instructions Includes: Instructions from this encounter Instructions to patient Instructions for patient to see pcp for low bp and wt Last Documented On 1 2:39PM ; [facility], [facility] Lose weight Last Documented On 1 2:39PM ; [facility], [facility] Medical Equipment - Implanted Devices Includes: Current Devices No Medical Equipment Recorded Medications Includes: Medications discussed during this encounter and other current Medications Current Medications (continue as prescribed) metFORMIN HCl ER 500 MG Oral Tablet Extended Release 24 Hour 06/22/2022 Provider: Catrachita parekh APRN Diagnosis: Last Documented On 2 2:28PM By Estrella Phillips ; [facility], [facility] Propafenone HCl 225 MG Oral Tablet 06/22/2022 Provid er: Diagnosis: Last Documented On 2 2:28PM By Estrella Phillips ; [facility], [facility] Past Medications on file Atorvastatin Calcium 20 MG O ral Tablet 09/18/2022 - 12/17/2022 Provider: SMITA Fraga Diagnosis: Last Documented On 2 1:32PM By Estrella Phillips ; [facility], [facility] Lisinopril 5 MG Oral Tablet 09/18/2022 - 12/17/2022 Pr ovider: SMITA VILLEGAS MD Diagnosis: Last Documented On 2 1:32PM By Estrella Phillips ; [facility], [facility] Escitalopram Oxalate 10 MG Oral Tablet 09/18/2022 - Provider: Diagnosis: Last Documented On 2 1:34PM By Estrella Phillips ; [facility], [facility] Xarelto 20 MG Oral Tablet 09/18/2022 - 12/17/2022 Prov ider: Diagnosis: Last Documented On 2 1:34PM By Estrella Phillips ; [facility], [facility] Propafenone HCl 150 MG Oral Tablet 09/18/2022 - 12/17/2022 Provider: LESTER STINSON MD Diagnosis: Last Documented On 2 1:34PM By Estrella Phillips ; [facility], [facility] Acetaminophen 500 MG Oral Tablet 07/11/2021 - 08/10/2021 Provider: Vince Almeida MD Diagnosis: 2 three times a day DNF UNTIL SX 07/13/21 Last Documented On 12:17PM By Magdiel Almeida ; [facility], [facility] Cefadroxil 500 MG Oral Capsule 07/11/2021 - 07/14/2021 Provider: Vince beltran MD Diagnosis: twice a day DNF UNTIL SX 07/13/21 Last Documented On 1 12:18PM By Magdiel Almeida ; [facility] Ultram 50 MG Oral Tablet 07/11/2021 - 07/16/2021 Provider: Vince beltran MD Diagnosis: 1-2 po q6h prn pain DNF UNTIL SX 07/13/21 Last Documented On 1 12:23PM By Magdiel Almeida ; [facility] oxyCODONE HCl 5 MG Oral Tablet 07/11/2021 - 07/16/2021 Provider: Vince beltran MD Diagnosis: 1-2 po q 4-6h DNF UNTIL SX 07/13/21 Last Documented On 1 12:23PM By Magdiel Almeida ; [facility] Ondansetron HCl 4 MG Oral Tablet 07/11/2021 - 07/16/2021 Provider: Vince Almeida MD Diagnosis: 2fqc2-2y DNF UNTIL SX 07/13/21 Last Documented On 1 12:20PM By Magdiel Almeida ; [facility] Neurontin 300 MG Oral Capsule 07/11/2021 - 10/09/2021 Provider: Vince beltran MD Diagnosis: 1 every bedtime DNF UNTIL SX 07/13/21 Last Documented On 1 12:23PM By Magdiel Almeida ; [facility] Meloxicam 15 MG Oral Tablet 07/11/2021 - 07/25/2021 Provider: Vince beltran MD Diagnosis: once a day DNF UNTIL SX 07/13/21 Last Documented On 1 12:19PM By Magdiel Almeida ; [facility] Colace 100 MG Oral Capsule 07/11/2021 - 10/09/2021 Provider: Vince beltran MD Diagnosis: 1-2 tabs daily DNF UNTIL SX 07/13/21 Last Documented On 1 12:18PM By Magdiel Almeida ; [facility] Ultram 50 MG Oral Tablet 05/10/2021 - 05/15/2021 Provider: Vince beltran MD Diagnosis: 1-2 po q6h prn pain DNF UNTIL SX 05/11/21 Last Documented On 9:08AM By Magdiel Almeida ; [facility] oxyCODONE HCl 5 MG Oral Tablet 05/10/2021 - 05/15/2021 Provider: Vince beltran MD Diagnosis: 1-2 po q 4-6h DNF UNTIL SX 05/11/21 Last Documented On 9:08AM By Magdiel Almeida ; [facility] Ondansetron HCl 4 MG Oral Tablet 05/10/2021 - 05/15/2021 Provider: Vince Almeida MD Diagnosis: 6wxc5-3m DNF UNTIL SX 05/11/21 Last Documented On 9:02AM By Magdiel Almeida ; [facility] Meloxicam 15 MG Oral Tablet 05/10/2021 - 05/24/2021 Provider: Vince beltran MD Diagnosis: once a day DNF UNTIL SX 05/11/21 Last Documented On 1 9:01AM By Magdiel Almeida ; [facility] Neurontin 300 MG Oral Capsule 05/10/2021 - 08/08/2021 Provider: Vince beltran MD Diagnosis: 1 every bedtime DNF UNTIL SX 05/11/21 Last Documented On 9:08AM By Magdiel Almeida ; [facility] Colace 100 MG Oral Capsule 05/10/2021 - 08/08/2021 Provider: Vince beltran MD Diagnosis: 1-2 tabs daily DNF UNTIL SX 05/11/21 Last Documented On 9:00AM By Magdiel Almeida ; [facility] Cefadroxil 500 MG Oral Capsule 05/10/2021 - 05/13/2021 Provider: Vince beltran MD Diagnosis: twice a day DNF UNTIL SX 05/11/21 Last Documented On 1 8:59AM By Magdiel Almeida ; [facility] Acetaminophen 500 MG Oral Tablet 05/10/2021 - 06/09/2021 Provider: Vince Almeida MD Diagnosis: 2 three times a day DNF UNTIL SX 05/11/21 Last Documented On 1 8:59AM By Magdiel Almeida ; [facility] Medications Administered Includes: Administered Medications from this encounter No Administered Medications Recorded Vital Signs Includes: Vital Signs from this encounter Vital Name 08/03/2021 03:07P Blood Pressure Sitting (mmHg) 113/77 Pulse Rate-Sitting (bpm) 76 Height (in) 66 Weight (lb) 315 Body Mass Index (kg/m2) 50.8 Body Surface Area (m2) 2.4 Note: ab Last Documented: On 08/03/2021 3:08PM ; [facility] Results Includes: Results discussed during this encounter No Results Recorded For Specified Dates History of Present Illness Includes: History of Present Illness from this encounter HPI Cindy Vargas is a 60 year old female. - Allergy list reviewed - Problem list reviewed - Medication reconciliation performed - Medication list reviewed with patient Social History Description Last Updated Exercising regularly 09/18/2022 Last Documented On 1 2:38PM ; [facility] Non-smoker 05/26/2021 Last Documented On 1 2:38PM ; [facility] Not a current smoker. 05/26/2021 Last Documented On 1 2:38PM ; [facility] Caffeine use 02/11/2019 Last Documented On 1 2:38PM ; [facility] No recent change in diet 02/11/2019 Last Documented On 1 2:38PM ; [facility] Not a current smoker 02/11/2019 Last Documented On 1 2:38PM ; [facility] Not using alcohol 02/11/2019 Last Documented On 1 2:38PM ; [facility] Not using drugs 02/11/2019 Last Documented On 1 2:38PM ; [facility], [facility] No tobacco use 02/11/2019 Last Documented On 1 2:38PM ; [facility] Smoking status : Never smoker 02/11/2019 Last Documented On 1 2:38PM ; [facility], [facility] Procedures and Surgical History Includes: Procedures from this encounter Procedures Code Diagnosis Performing Provider Service L ocation Service Date use of tobacco assessment performed 1000F Last Documented On 1 2:39PM ; [facility], [facility] Clinical summary provided to patient Last Documented On 1 2:39PM ; [facility], [facility] an X-ray was performed 57338 Last Documented On 1 2:39PM ; [facility], [facility] History of Blood Tests Last Documented On 1 2:39PM ; [facility], [facility] Medical History Includes: Medical History addressed during this encounter Description Last Updated Recent immunization for flu 2019 022 Last Documented On 1 2:38PM ; [facility] Arthritis 05/26/2021 Last Documented On 1 2:38PM ; [facility], [facility] Heartburn / Acid Reflux 05/26/2021 Last Documented On 1 2:38PM ; [facility] History of Gallbladder 05/26/2021 Last Documented On 1 2:38PM ; [facility], [facility] Hypertension 05/26/2021 Last Documented On 1 2:38PM ; [facility], [facility] Irregular Heartbeat 05/26/2021 Last Documented On 1 2:38PM ; [facility], [facility] No recent immunization for pneumococcal pneumonia 05/26/2021 Last Documented On 1 2:38PM ; [facility], [facility] Past Surgical History: cataracts 021 Last Documented On 1 2:38PM ; [facility] Sleep Apnea 05/26/2021 Last Documented On 1 2:38PM ; [facility], [facility] Total knee arthroplasty 05/26/2021 Last Documented On 1 2:38PM ; [facility], [facility] Use of CPAP 05/26/2021 Last Documented On 1 2:38PM ; [facility] heartburn/acid reflux 02/11/2019 Last Documented On 1 2:38PM ; [facility] A previous fracture 02/11/2019 Last Documented On 1 2:38PM ; [facility] Arthritic joint problems 02/11/2019 Last Documented On 1 2:38PM ; [facility] Gallbladder disease 02/11/2019 Last Documented On 1 2:38PM ; [facility] History of diabetes mellitus 02/11/2019 Last Documented On 1 2:38PM ; [facility] Intermittent hypertension 02/11/2019 Last Documented On 1 2:38PM ; [facility], [facility] Family History Includes: Family History addressed during this encounter Description Last Updated Diabetes mellitus 05/26/2021 Last Documented On 1 2:38PM ; [facility], [facility] Stroke / Seizures 05/26/2021 Last Documented On 1 2:38PM ; [facility], [facility] Family history of cancer 02/11/2019 Last Documented On 1 2:38PM ; [facility], [facility] Family history of diabetes mellitus 01/15 Last Documented On 1 2:38PM ; [facility], [facility] Family history of heart disease 02/12/20 19 Last Documented On 1 2:38PM ; [facility], [facility] Family history of hypertension 9 Last Documented On 1 2:38PM ; [facility], [facility] Family history of thromboembolic disease 02/11/2019 Last Documented On 1 2:38PM ; [facility], [facility] Review of Systems Includes: Review of [...] Active Last Documented On 2 1:32PM ; [facility] NSAIDs Allergy 02/11/2019 Resolved Last Documented On 0 1:35PM ; [facility] Note: Per patient Encounters Encounter Provider Location Date Check-In Time Check-Out Time Diagnosis Post Op Vince Almeida MD [facility] 08/03/20 21 2:36PM 3:22PM Insurance Includes: Active Insurance Policies Plan Name Member ID Group # Subscriber Relationship Effect ciara Dates 1 - [facility] [id number] Cindy Vargas Self 10/15/2021 - Unknown Clinical Notes Includes: Clinical Notes from this encounter No Clinical Notes Recorded
--- OUTSIDE RECORDS SUMMARY | 2025-01-29 01:40 | XMS_ITS | Clinical Summary ---
Author Organization [facility] , [facility] Address [address] [place] [address] Phone Care Team Providers Care Marketing Content Specialist Name Role Phone NELLY DINH, SMITA Unavailable [phone] Elle DINH, Vince Pate Unavailable [phone] Reason for Visit and Chief Complaint [facility] Problems Includes: Problems addressed during this encounter and other active Problems All Visits Onset Date Resolved Date Provider Condition S tatus Joint Pain in Both Knees 02/11/2019 Vince Almeida MD Active Last Documented On 9 3:09PM ; [facility] Plan of Treatment No Plan of Treatment Recorded Assessments Includes: Assessments from this encounter No Assessments Recorded Medical Equipment - Implanted Devices Includes: Current Devices No Medical Equipment Recorded Medications Includes: Medications discussed during this encounter and other current Medications Current Medications (continue as prescribed) metFORMIN HCl ER 500 MG Oral Tablet Extended Release 24 Hour 06/22/2022 Provider: Catrachita parekh APRN Diagnosis: Last Documented On 2 2:28PM By Estrella Fair [facility] Propafenone HCl 225 MG Oral Tablet 06/22/2022 Provid er: Diagnosis: Last Documented On 2 2:28PM By Estrella Fair [facility] Medications Administered Includes: Administered Medications from this encounter No Administered Medications Recorded Results Includes: Results discussed during this encounter No Results Recorded For Specified Dates History of Present Illness Includes: History of Present Illness from this encounter No History of Present Illness Recorded Social History No Social History Recorded - Smoking Status Unknown Medical History Includes: Medical History addressed during this encounter No Medical History Recorded Family History Includes: Family History addressed during this encounter No Family History Recorded Review of Systems Includes: Review of Systems from this encounter No Review of Systems Recorded Mental Status Includes: Mental Status from this encounter No Mental Status Recorded Functional Status Includes: Functional Status from this encounter No Functional Status Recorded Physical Exam Includes: Physical Exam from this encounter No Physical Exam Recorded Allergies Includes: Active Allergies Substance Type Reaction Onset Date Resolved Date Statu s predniSONE Allergy lethargy 12/25/2019 Active Last Documented On 2 1:32PM ; [facility] NSAIDs Allergy 02/11/2019 Resolved Last Documented On 0 1:35PM ; [facility] Note: Per patient Encounters Encounter Provider Location Date Check-In Time Check-Out Time Diagnosis [facility] Vince Almeida MD Surgery 07/13/20 21 11:52AM 11:59PM Insurance Includes: Active Insurance Policies Plan Name Member ID Group # Subscriber Relationship Effect ciara Dates 1 - [facility] [id number] Cindy Alicia Self 10/15/2021 - Unknown Clinical Notes Includes: Clinical Notes from this encounter No Clinical Notes Recorded
--- OUTSIDE RECORDS SUMMARY | 2025-01-29 01:41 | XMS_ITS ---
Care Plan - [facility], [facility] Created on: January 29, 2025 Cindy Vargas : 1960 Sex: Female Author Organization [facility] , [facility] Address [address] [place] [address] Phone Care Team Providers Care Automatic Washer Mechanic Name Role Phone NELLY DINH, SMITA Unavailable [phone] Elle DINH, Vince Pate Unavailable [phone]
--- OUTSIDE RECORDS SUMMARY | 2025-01-29 01:41 | XMS_ITS ---
Author Organization [facility] Address [address] [place] [address] Phone Care Team Providers Care Motorcycle Repairer Name Role Phone NELLY DINH, SMITA Unavailable [phone] Elle DINH, Vince Pate Unavailable [phone] Reason for Referral Date Encounter Description Provider Reason for Referral 09/18/22 Follow Up Dat Tilley PA-C Refer ral To Physician - see pcp for bp 09/15/21 Post Op Dat Tilley PA-C Refer ral To Physician - see pcp for bp Problems Includes: Active, inactive, and resolved Problems All Visits Onset Date Resolved Date Provider Condition S tatus Joint Pain in Both Knees 02/11/2019 Vince Almeida MD Active Last Documented On 9 3:09PM ; [facility] Plan of Treatment Instructions to patient Instructions for patient to see pcp for low bp and wt Last Documented On 2 1:31PM ; [facility] Lose weight Last Documented On 2 1:31PM ; [facility] Instructions for patient to see pcp for low bp and wt Last Documented On 1 1:06PM ; [facility] Lose weight Last Documented On 1 1:06PM ; [facility] Instructions for patient to see pcp for low bp and wt Last Documented On 1 2:39PM ; [facility] Lose weight Last Documented On 1 2:39PM ; [facility] Instructions for patient to see pcp for low bp and wt Last Documented On 1 1:15PM ; [facility] Lose weight Last Documented On 1 1:15PM ; [facility] Instructions for patient to see pcp for low bp and wt Last Documented On 1 11:11AM ; [facility] Lose weight Last Documented On 1 11:11AM ; [facility] Instructions for patient to see pcp for low bp and wt Last Documented On 0 1:29PM ; [facility] Lose weight Last Documented On 0 1:29PM ; [facility] Instructions for patient to see pcp for low bp and wt Last Documented On 0 11:16AM ; [facility] Lose weight Last Documented On 0 11:16AM ; [facility] Instructions for patient to see pcp for low bp and wt Last Documented On 9 3:08PM ; [facility] Lose weight Last Documented On 9 3:08PM ; [facility] Assessments Includes: Assessments for all patient encounters No Assessments Recorded Instructions Includes: Instructions for all patient encounters Instructions to patient Instructions for patient to see pcp for low bp and wt Last Documented On 2 1:31PM ; [facility] Lose weight Last Documented On 2 1:31PM ; [facility] Instructions for patient to see pcp for low bp and wt Last Documented On 1 1:06PM ; [facility] Lose weight Last Documented On 1 1:06PM ; [facility] Instructions for patient to see pcp for low bp and wt Last Documented On 1 2:39PM ; [facility] Lose weight Last Documented On 1 2:39PM ; [facility] Instructions for patient to see pcp for low bp and wt Last Documented On 1 1:15PM ; [facility] Lose weight Last Documented On 1 1:15PM ; [facility] Instructions for patient to see pcp for low bp and wt Last Documented On 1 11:11AM ; [facility] Lose weight Last Documented On 1 11:11AM ; [facility] Instructions for patient to see pcp for low bp and wt Last Documented On 0 1:29PM ; [facility] Lose weight Last Documented On 0 1:29PM ; [facility] Instructions for patient to see pcp for low bp and wt Last Documented On 0 11:16AM ; [facility] Lose weight Last Documented On 0 11:16AM ; [facility] Instructions for patient to see pcp for low bp and wt Last Documented On 9 3:08PM ; [facility] Lose weight Last Documented On 9 3:08PM ; [facility] Medical Equipment - Implanted Devices Includes: Current and historical Devices No Medical Equipment Recorded Medications Includes: Current and historical Medications Current Medications (continue as prescribed) metFORMIN HCl ER 500 MG Oral Tablet Extended Release 24 Hour 06/22/2022 Provider: Catrachita parekh APRN Diagnosis: Last Documented On 2 2:28PM By Estrella Phillips ; [facility] Propafenone HCl 225 MG Oral Tablet 06/22/2022 Provid er: Diagnosis: Last Documented On 2 2:28PM By Estrella Phillips ; [facility] Past Medications on file Atorvastatin Calcium 20 MG O ral Tablet 09/18/2022 - 12/17/2022 Provider: SMITA Fraga Diagnosis: Last Documented On 2 1:32PM By Estrella Phillips ; [facility] Lisinopril 5 MG Oral Tablet 09/18/2022 - 12/17/2022 Pr ovider: SMITA VILLEGAS MD Diagnosis: Last Documented On 2 1:32PM By Estrella Phillips ; [facility] Escitalopram Oxalate 10 MG Oral Tablet 09/18/2022 - Provider: Diagnosis: Last Documented On 2 1:34PM By Estrella Phillips ; [facility] Xarelto 20 MG Oral Tablet 09/18/2022 - 12/17/2022 Prov ider: Diagnosis: Last Documented On 2 1:34PM By Estrella Phillips ; [facility] Propafenone HCl 150 MG Oral Tablet 09/18/2022 - 12/17/2022 Provider: LESTER STINSON MD Diagnosis: Last Documented On 2 1:34PM By Estrella Phillips ; [facility] Atenolol-Chlorthalidone 50-25 MG Oral Tablet 2 - 09/18/2022 Provider: Diagnosis: Last Documented On 2 2:27PM By Estrella Phillips ; [facility] Aspirin 325 MG Oral Tablet 09/18/2022 - 09/18/2022 Pro vider: Diagnosis: Last Documented On 2 2:27PM By Estrella Phillips ; [facility] metFORMIN HCl 500 MG Oral Tablet 09/18/2022 - 09/18/20 22 Provider: Diagnosis: Last Documented On 2 2:27PM By Estrella Phillips ; [facility] Vitamin C 1000 MG Oral Tablet 09/18/2022 - 022 Provider: Diagnosis: Last Documented On 2 2:28PM By Estrella Phillips ; [facility] Vitamin D3 250 MCG (06596 UT) Oral Capsule 1 11/19/2021 - 09/18/2022 Provider: Diagnosis: Last Documented On 2 2:27PM By Estrella Phillips ; [facility] Loratadine 10 MG Oral Capsule 09/18/2022 - 09/18/2022 Provider: Diagnosis: Last Documented On 2 2:27PM By Estrella Phillips ; [facility] Potassium 75 MG Oral Tablet 09/18/2022 - 09/18/2022 Pr ovider: Diagnosis: Last Documented On 2 2:28PM By Estrella Phillips ; [facility] Zegerid 20-1100 MG Oral Capsule 09/18/2022 - Provider: Diagnosis: Last Documented On 2 2:27PM By Estrella Phillips ; [facility] Acetaminophen 500 MG Oral Tablet 07/11/2021 - 08/10/2021 Provider: Vince Almeida MD Diagnosis: 2 three times a day DNF UNTIL SX 07/13/21 Last Documented On 1 12:17PM By Magdiel Almeida ; [facility] Cefadroxil 500 MG Oral Capsule 07/11/2021 - 07/14/2021 Provider: Vince beltran MD Diagnosis: twice a day DNF UNTIL SX 07/13/21 Last Documented On 1 12:18PM By Magdiel Almeida ; [facility] Ultram 50 MG Oral Tablet 07/11/2021 - 07/16/2021 Provider: Vince beltran MD Diagnosis: 1-2 po q6h prn pain DNF UNTIL SX 07/13/21 Last Documented On 1 12:23PM By Magdiel Almeida ; [facility] oxyCODONE HCl 5 MG Oral Tablet 07/11/2021 - 07/16/2021 Provider: Vince beltran MD Diagnosis: 1-2 po q 4-6h DNF UNTIL SX 07/13/21 Last Documented On 1 12:23PM By Magdiel Almeida ; [facility] Ondansetron HCl 4 MG Oral Tablet 07/11/2021 - 07/16/2021 Provider: Vince Almeida MD Diagnosis: [id number] DNF UNTIL SX 07/13/21 Last Documented On 1 12:20PM By Magdiel Almeida ; [facility] Neurontin 300 MG Oral Capsule 07/11/2021 - 10/09/2021 Provider: Vince beltran MD Diagnosis: 1 every bedtime DNF UNTIL SX 07/13/21 Last Documented On 1 12:23PM By Magdiel Almeida ; [facility] Meloxicam 15 MG Oral Tablet 07/11/2021 - 07/25/2021 Provider: Vince beltran MD Diagnosis: once a day DNF UNTIL SX 07/13/21 Last Documented On 12:19PM By Magdiel Almeida ; [facility] Colace 100 MG Oral Capsule 07/11/2021 - 10/09/2021 Provider: Vince beltran MD Diagnosis: 1-2 tabs daily DNF UNTIL SX 07/13/21 Last Documented On 12:18PM By Magdiel Almeida ; [facility] Ultram 50 MG Oral Tablet 05/10/2021 - 05/15/2021 Provider: Vince beltran MD Diagnosis: 1-2 po q6h prn pain DNF UNTIL SX 05/11/21 Last Documented On 1 9:08AM By Magdiel Almeida ; [facility] oxyCODONE HCl 5 MG Oral Tablet 05/10/2021 - 05/15/2021 Provider: Vince beltran MD Diagnosis: 1-2 po q 4-6h DNF UNTIL SX 05/11/21 Last Documented On 1 9:08AM By Magdiel Almeida ; [facility] Ondansetron HCl 4 MG Oral Tablet 05/10/2021 - 05/15/2021 Provider: Vince Almeida MD Diagnosis: 6lot7-8m DNF UNTIL SX 05/11/21 Last Documented On 1 9:02AM By Magdiel Almeida ; [facility] Meloxicam 15 MG Oral Tablet 05/10/2021 - 05/24/2021 Provider: Vince beltran MD Diagnosis: once a day DNF UNTIL SX 05/11/21 Last Documented On 1 9:01AM By Magdiel Almeida ; [facility] Neurontin 300 MG Oral Capsule 05/10/2021 - 08/08/2021 Provider: Vince beltran MD Diagnosis: 1 every bedtime DNF UNTIL SX 05/11/21 Last Documented On 1 9:08AM By Magdiel Almeida ; [facility] Colace 100 MG Oral Capsule 05/10/2021 - 08/08/2021 Provider: Vince beltran MD Diagnosis: 1-2 tabs daily DNF UNTIL SX 05/11/21 Last Documented On 1 9:00AM By Magdiel Almeida ; [facility] Cefadroxil 500 MG Oral Capsule 05/10/2021 - 05/13/2021 Provider: Vince beltran MD Diagnosis: twice a day DNF UNTIL SX 05/11/21 Last Documented On 1 8:59AM By Magdiel Almeida ; [facility] Acetaminophen 500 MG Oral Tablet 05/10/2021 - 06/09/2021 Provider: Vince Almeida MD Diagnosis: 2 three times a day DNF UNTIL SX 05/11/21 Last Documented On 1 8:59AM By Magdiel Almeida ; [facility] Propafenone HCl 150 MG Oral Tablet 04/25/2021 - 09/18/2022 Provider: LESTER STINSON MD Diagnosis: Last Documented On 2 1:34PM By Estrella Phillips ; [facility] Xarelto 20 MG Oral Tablet 04/04/2021 - 09/18/2022 Prov ider: Diagnosis: Last Documented On 2 1:34PM By Estrella Phillips ; [facility] Escitalopram Oxalate 10 MG Oral Tablet 12/05/2019 - Provider: Diagnosis: Last Documented On 2 1:34PM By Estrella Phillips ; [facility] Voltaren 1% Transdermal Gel 02/11/2019 - 09/18/2022 Pr ovider: Diagnosis: Last Documented On 2 1:32PM By Estrella Phillips ; [facility] Potassium 75MG Oral Tablet 02/11/2019 - 09/18/2022 Pro vider: Diagnosis: Last Documented On 2 1:33PM By Estrella Phillips ; [facility] Vitamin D3 [id number] Oral Capsule 02/11/2019 - 02/2022 Provider: Diagnosis: Last Documented On 2 1:33PM By Estrella Phillips ; [facility] Vitamin E 400UNIT Oral Capsule 02/11/2019 - 2021 Provider: Diagnosis: Last Documented On 2 1:33PM By Estrella Phillips ; [facility] Atenolol-Chlorthalidone 50-25MG Oral Tablet 02/11/2019 - 09/18/2022 Provider: Diagnosis: Last Documented On 2 1:33PM By Estrella Phillips ; [facility] Loratadine 10MG Oral Capsule 02/11/2019 - 09/18/2022 P charider: Diagnosis: Last Documented On 2 1:33PM By Estrella Phillips ; [facility] Aspirin 325MG Oral Tablet 02/11/2019 - 09/18/2022 Prov ider: Diagnosis: Last Documented On 2 1:33PM By Estrella Phillips ; [facility] Vitamin C 1000MG Oral Tablet 02/11/2019 - 09/18/20 Provider: Diagnosis: Last Documented On 2 1:33PM By Estrella Phillips ; [facility] Zegerid 20-1100MG Oral Capsule 02/11/2019 - 09/18/2022 Provider: Diagnosis: Last Documented On 2 1:33PM By Estrella Phillips ; [facility] Lisinopril 5MG Oral Tablet 01/30/2019 - 09/18/2022 Pro vider: SMITA VILLEGAS MD Diagnosis: Last Documented On 2 1:32PM By Estrella Phillips ; [facility] metFORMIN HCl 500MG Oral Tablet 07/24/2018 - 2 Provider: Diagnosis: Last Documented On 2 1:32PM By Estrella Phillips ; [facility] Atorvastatin Calcium 20MG Or al Tablet 07/22/2018 - 09/18/2022 Provider: SMITA Fraga Diagnosis: Last Documented On 2 1:32PM By Estrella Phillips ; [facility] Medications Administered Includes: Administered Medications in patient's chart No Administered Medications Recorded Results Includes: Results from 01/30/2024 through 01/29/2025 No Results Recorded For Specified Dates History of Present Illness History of Present Illness not supported for this document type No History of Present Illness Recorded Social History Description Last Updated Not exercising regularly 09/18/2022 Last Documented On 2 3:34PM ; [facility] Tobacco non-user 09/18/2022 Last Documented On 2 3:34PM ; [facility] No recent change in diet 09/18/2022 Last Documented On 2 3:34PM ; [facility] Not a current smoker. 09/18/2022 Last Documented On 2 3:34PM ; [facility] Non-smoker 05/26/2021 Last Documented On 1 10:16AM ; [facility] Not a current smoker. 05/26/2021 Last Documented On 1 10:16AM ; [facility] Caffeine use 02/11/2019 Last Documented On 9 4:02PM ; [facility] No recent change in diet 02/11/2019 Last Documented On 9 4:02PM ; [facility] Not a current smoker 02/11/2019 Last Documented On 9 4:02PM ; [facility] Not using alcohol 02/11/2019 Last Documented On 9 4:02PM ; [facility] Not using drugs 02/11/2019 Last Documented On 9 4:02PM ; [facility] No tobacco use 02/11/2019 Last Documented On 9 4:02PM ; [facility] Smoking status : Never smoker 02/11/2019 Last Documented On 9 4:02PM ; [facility] Procedures and Surgical History Surgical History Last Updated History of History of Gallbladder 2021 Last Documented On 2 3:34PM ; [facility] Medical History Includes: Medical History in patient's chart Description Last Updated History of arthritis 09/18/2022 Last Documented On 2 3:34PM ; [facility] History of Heartburn / Acid Reflux 09/18 Last Documented On 2 3:34PM ; [facility] History of Hypertension 09/18/2022 Last Documented On 2 3:34PM ; [facility] History of Irregular Heartbeat 2 Last Documented On 2 3:34PM ; [facility] Recent immunization for flu 07/25/2022 1 11/19/2021 Last Documented On 2 3:34PM ; [facility] Arthritis 05/26/2021 Last Documented On 1 10:16AM ; [facility] Heartburn / Acid Reflux 05/26/2021 Last Documented On 1 10:16AM ; [facility] History of Gallbladder 05/26/2021 Last Documented On 1 10:16AM ; [facility] Hypertension 05/26/2021 Last Documented On 1 10:16AM ; [facility] Irregular Heartbeat 05/26/2021 Last Documented On 1 10:16AM ; [facility] No recent immunization for pneumococcal pneumonia 05/26/2021 Last Documented On 1 10:16AM ; [facility] Past Surgical History: cataracts 021 Last Documented On 1 10:16AM ; [facility] Sleep Apnea 05/26/2021 Last Documented On 1 10:16AM ; [facility] Total knee arthroplasty 05/26/2021 Last Documented On 1 10:16AM ; [facility] Use of CPAP 05/26/2021 Last Documented On 1 10:16AM ; [facility] heartburn/acid reflux 02/11/2019 Last Documented On 9 4:02PM ; [facility] A previous fracture 02/11/2019 Last Documented On 9 4:02PM ; [facility] Arthritic joint problems 02/11/2019 Last Documented On 9 4:02PM ; [facility] Gallbladder disease 02/11/2019 Last Documented On 9 4:02PM ; [facility] History of diabetes mellitus 02/11/2019 Last Documented On 9 4:02PM ; [facility] Intermittent hypertension 02/11/2019 Last Documented On 9 4:02PM ; [facility] Family History Includes: Family History in patient's chart Description Last Updated Diabetes mellitus 05/26/2021 Last Documented On 1 10:16AM ; [facility] Stroke / Seizures 05/26/2021 Last Documented On 1 10:16AM ; [facility] Family history of cancer 02/11/2019 Last Documented On 9 4:02PM ; [facility] Family history of diabetes mellitus 01/15 Last Documented On 9 4:02PM ; [facility] Family history of heart disease 02/12/20 19 Last Documented On 9 4:02PM ; [facility] Family history of hypertension 9 Last Documented On 9 4:02PM ; [facility] Family history of thromboembolic disease 02/11/2019 Last Documented On 9 4:02PM ; [facility] Review of Systems Review of Systems not supported for this document type No Review of Systems Recorded Mental Status Description Anxiety Functional Status No Functional Status Recorded Physical Exam Physical Exam not supported for this document type No Physical Exam Recorded Immunizations Includes: Immunizations in patient's chart Vaccine Dose # Date Site Reaction(s) Status Source Influenza 1 07/25/2022 Complete (Reported) Patient Last Documented On 2 1:57PM ; [facility] PCV (Pneumovax 23) 1 09/18/2022 Complete (Refused - Patient objection) [facility] Last Documented On 2 1:57PM ; [facility] Allergies Includes: Active, inactive, and resolved Allergies Substance Type Reaction Onset Date Resolved Date Statu s predniSONE Allergy lethargy 12/25/2019 Active Last Documented On 2 1:32PM ; [facility] NSAIDs Allergy 02/11/2019 Resolved Last Documented On 0 1:35PM ; [facility] Note: Per patient Insurance Includes: Active Insurance Policies Plan Name Member ID Group # Subscriber Relationship Effect ciara Dates 1 - [facility] [id number] Cindy [place] Self 10/15/2021 - Unknown Clinical Notes Includes: Signed Clinical Notes starting from 09/28/2022 No Clinical Notes Recorded
--- OUTSIDE RECORDS SUMMARY | 2025-01-29 01:41 | XMS_ITS | Clinical Summary ---
Author Organization [facility] Address [address] [place] [address] Phone Care Team Providers Care Typewriter Aligner Name Role Phone NELLY DINH, SMITA Unavailable [phone] Elle DINH, Vince Pate Unavailable U navailable Reason for Visit and Chief Complaint BRACE FITTING Problems Includes: Problems addressed during this encounter and other active Problems All Visits Onset Date Resolved Date Provider Condition S tatus Joint Pain in Both Knees 02/11/2019 Vince Almeida MD Active Last Documented On 9 3:09PM ; [facility], [facility] Plan of Treatment No Plan of Treatment [...] Documented On 2 2:28PM By Estrella Fair [facility], [facility] Propafenone HCl 225 MG Oral Tablet 06/22/2022 Provid er: Diagnosis: Last Documented On 2 2:28PM By Estrella Fair [facility], [facility] Medications Administered Includes: Administered Medications from this [...] Active Last Documented On 2 1:32PM ; [facility] NSAIDs Allergy 02/11/2019 Resolved Last Documented On 0 1:35PM ; [facility], [facility] Note: Per patient Encounters Encounter Provider Location Date Check-In Time Check-Out Time Diagnosis BRACE FITTING Vince Almeida MD [facility] 1 2:26PM 11:59PM Insurance Includes: Active Insurance Policies Plan Name Member ID Group # Subscriber Relationship Effect ciara Dates 1 - [facility] [id number] Cindy Alicia Self 10/15/2021 - Unknown Clinical Notes Includes: Clinical Notes from this encounter No Clinical Notes Recorded
[2025-01-29 01:47] LABS: POC Glucose,Bedside 141 (70-110)
[2025-01-29 01:48] VITALS: BMI 41.5
[2025-01-29 02:07] VITALS: BP 141/75; PULSE 66; O2SAT 98
--- NOTE | 2025-01-29 02:13 | PC.NURSE ---
0133- trauma downgrade per Dr Kennedy 0133- C-Collar placed per Stephy DENNEY
[2025-01-29] MEDS: ACETAMINOPHEN 500MG TAB 1000 MG PO (02:35)
[2025-01-29 02:55] VITALS: BP 124/68; PULSE 60; RESP 20; TEMP 36.8; O2SAT 97
== END 2025-01-29 03:06 | disposition home or self-care (01) ==
PROVIDERS: Emergency Provider Emergency Medicine; PCP Internal Medicine Adolescent Medicine
DX: S00.12XA Contusion of left eyelid and periocular area, initial encounter (principal); M25.78 Osteophyte, vertebrae; R51.9 Headache, unspecified; Z79.01 Long term (current) use of anticoagulants; W18.30XA Fall on same level, unspecified, initial encounter
CPT/HCPCS: 70450; 70486; 72125; 73120; 73562; 82962; 99285